=== PATIENT | female | born 1975 | race African-American/Black ===

== ENCOUNTER 2018-08-13 10:50 | Inpatient (IN) | payer OTHER ==
[~2018-08-13 10:50] MED LIST: DESFLURANE 240 ML LIQUID IH ONE; DEXAMETHASONE SOD PHOS 4 MG/ML VIAL ONE; FAMOTIDINE/PF 20 MG/2 ML VIAL ONE; HEPARIN SODIUM 5000 UNIT/1 ML ONE; HYDROmorphone HCL/PF 1 MG/ML DISP.SYRIN ONE; KETOROLAC TROMETHAMINE 30 MG/1ML VIAL ONE; LACTATED RINGERS 1,000 ML IV.SOLN IV ONE; LIDOCAINE HCL/PF 2% 100 MG/5 ML VIAL IJ ONE; Lidocaine 1% PF 30ml 10 MG/ML VIAL ONE; MIDAZOLAM HCL 2 MG/2 ML VIAL ONE; NORMAL SALINE 1,000 ML IV.SOLN IV ONE; ONDANSETRON HCL/PF 4 MG/ 2ML VIAL ONE; PHENYLEPHRINE HCL 10 MG/1 ML ONE; PROPOFOL 200 MG/20 ML VIAL IV ONE; ROCURONIUM BROMIDE 10 MG/ML 5ML VIAL ONE; SUGAMMADEX 200 mg/2mL 200 MG/2 ML VIAL IV ONE; ceFAZolin SODIUM 1 GM VIAL ONE; fentaNYL CITRATE/PF 100 MCG/ 2ML AMP ONE
[2018-08-13] MEDS ORDERED: fentaNYL CITRATE/PF 100 MCG/ 2ML AMP ONE (14:22)
[2018-08-13] MEDS ORDERED: HYDROmorphone HCL/PF 1 MG/ML DISP.SYRIN ONE (14:49)
[2018-08-13] MEDS ORDERED: ONDANSETRON HCL/PF 4 MG/ 2ML VIAL ONE (15:18)
[2018-08-13] MEDS ORDERED: LEVALBUTEROL HCL 1.25 MG/3 ML AMPUL.NEB NEB PRN (15:49)
[2018-08-13] MEDS ORDERED: MORPHINE SULFATE 4 MG/ML PREFILLED SYR IVP PRN (15:49)
[2018-08-13] MEDS ORDERED: PROMETHAZINE HCL 25 MG in 0.9 % SODIUM CHLORIDE 50 ML IV PRN (15:49)
[2018-08-13] MEDS ORDERED: HYDROCODONE/ACETAMINOPHEN 15 ML SOLUTION PO PRN (15:49)
[2018-08-13] MEDS ORDERED: diphenhydrAMINE HCL 50 MG/ML VIAL IVP PRN (15:49)
[2018-08-13] MEDS ORDERED: ACETAMINOPHEN 1,000 MG/100 ML INJ IV PRN (15:49)
--- NOTE | 2018-08-13 15:58 | History and Physical Report ---
History of Present Illnes - History of Present Illness Reason for Visit: Obesity History of Present Illness: Patient underwent gastric sleeve today for morbid obesity. The procedure went well. She will be admitted to Acute Care for Post op care. - Past Medical History [employer]ER: Migraine Gastrointestinal: GERD Heme/Onc: Anemia NOS (Pre op Hgb 13.9) Rheumatologic: Other (Lupus) Renal/: Other (Stress incontinence) Endocrine: Diabetes (Diet controlled A1C 6.0 last month) - Past Surgical History Past Surgical History: Hysterectomy (1997 - endometriosis), Other (bladder sling), Other (R arm fx) - Past Family History Father Family History: Cancer (prostate), (58) - Past Social History Smoke: No Alcohol: None Drugs: None Lives: Other (S.OJulieta Mckinley) - Health Maintenance Health Maintenance: denies: Influenza Vaccine, Pneumococcal Vaccine Influenza Vaccine: No Pneumonia Vaccine: No Resuscitation Status: Resusciation Status Resuscitation Status Full Code Review of Systems - Review of Systems Constitutional: negative: Fever, Weakness Eyes: negative: pain ENT: Throat Pain. negative: Ear Pain Respiratory: negative: Cough, Shortness of Breath Cardiovascular: negative: Chest Pain Gastrointestinal: Abdominal Pain. negative: Nausea, Vomiting Genitourinary: negative: Dysuria Musculoskeletal: negative: Back Pain Skin: negative: Rash Neurological: negative: Weakness - Medications/Allergies Current Inpatient Medications: Current Inpatient Medications Acetaminophen (Ofirmev) 1,000 mg IV Q6H PRN PRN Reason: For Mild Breakthrough Pain Stop: 08/17/18 15:48 Cefazolin Sodium (Ancef) 1 gm IV Q8 KACEY Stop: 08/13/18 21:01 Diphenhydramine HCl (Benadryl) 25 mg IVP Q6H PRN PRN Reason: Sleeping and Itching Stop: 08/17/18 15:48 Famotidine (Pepcid) 20 mg IVP BID KACEY Stop: 08/17/18 20:59 Promethazine HCl 25 mg/ Sodium (Chloride) 51 mls @ 600 mls/hr IV Q6 PRN PRN Reason: Nausea / Vomiting Stop: 08/17/18 15:48 Ketorolac Tromethamine (Toradol) 30 mg IVP Q6 PRN PRN Reason: For Mild Pain Stop: 08/17/18 15:48 Levalbuterol HCl (Xopenex) 1.25 mg NEB Q4 PRN PRN Reason: SOA, Dyspnea, or Wheezing Stop: 08/17/18 15:48 Morphine Sulfate (Depodur) 2 mg IVP Q2 PRN PRN Reason: MODERATE PAIN Stop: 08/17/18 15:48 Morphine Sulfate (Depodur) 4 mg IVP Q2 PRN PRN Reason: Severe Pain Stop: 08/17/18 15:48 Ondansetron HCl (Zofran 4 Mg/2 Ml) 4 mg IVP Q6H PRN PRN Reason: Nausea / Vomiting Stop: 08/17/18 15:48 Exam - Exam General: Alert, Oriented to Person, Oriented to Place, Oriented to Time, Cooperative, No acute distress HEENT: Atraumatic, PERRLA, EOMI, Mouth Mucous membr. moist/Mystic Neck: Normal Range of Motion Lungs: Clear to auscultation, Normal air movement, Speaks full Sentences Cardiovascular: Regular rate Abdomen: Normal bowel sounds, Soft. No: No tenderness (diffuse mild) Integumentary: Normal Extremities: No edema Neurological: Normal gait, Normal speech, Strength Equal Bilat Psych/Mental Status: Mental status NL, Mood NL, Appropriate Affect, Intact Judgment - Laboratory Results Laboratory Results: Laboratory Results 08/13/18 Unknown Urine HCG, Qual Negative Assessment/Plan - Assessment/Plan (1) S/P gastric surgery Status: Acute Current Visit: Yes Plan: Admit to Acute for IVF. IV pain meds for 24 hours then transition to po. IV H2 blockers. Oral PPI's. SCD and heparin for DVT prevention (lovenox allergy). Clear liquid and advance per protocol. (2) Morbid obesity Status: Acute Current Visit: Yes (3) Lupus Status: Chronic Current Visit: No Qualifiers: Lupus erythematosus form: unspecified Qualified Code(s): L93.0 - Discoid lupus erythematosus Plan: PCP recommended being off imuran for 2 weeks pre and post op. 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 No home meds. VTE Assessment - RISK FACTOR SCORE VTE RISK FACTOR SCORES: AGE 40-60 YEARS, MAJOR SURGERY/ANESTHESIA TIME > 1 HOUR - RISK VTE MODERATE RISK: SCORE OF 2 (RISK PROXIMAL DVT 2-4%) PROPHYAXIS NEEDED
[2018-08-13] MEDS: 0.9 % SODIUM CHLORIDE 1,000 ML IV SCH ×2 (16:54→22:00)
[2018-08-13] MEDS: ONDANSETRON HCL/PF 4 MG/ 2ML VIAL IVP PRN (16:56)
[2018-08-13 19:43] VITALS: BMI 38.7
[2018-08-13] MEDS: ceFAZolin SODIUM 1 GM VIAL IV SCH ×2 (20:00→22:00)
[2018-08-13] MEDS: MORPHINE SULFATE 4 MG/ML PREFILLED SYR IVP PRN (21:30)
[2018-08-13] MEDS: FAMOTIDINE/PF 20 MG/2 ML VIAL IVP SCH (22:00)
[2018-08-13] MEDS ORDERED: 0.9 % SODIUM CHLORIDE 50 ML IV ONE (22:25)
[2018-08-14] MEDS: MORPHINE SULFATE 4 MG/ML PREFILLED SYR IVP PRN (06:48)
[2018-08-14] MEDS: ONDANSETRON HCL/PF 4 MG/ 2ML VIAL IVP PRN (07:18)
--- NOTE | 2018-08-14 09:44 | Inpatient Progress Note ---
Subjective - Required Recertification Statement I anticipate X number of days because-include discharge plan: 1 - Review of Systems Subjective: Patient tired, sleeping. No doing IS. Not tolerating more than ice chips. Objective - Exam Vitals and I&O: Vital Signs Temp 101.5 F H 08/14/18 06:00 Pulse 94 H 08/14/18 06:00 Resp 16 08/14/18 06:00 BP 138/80 08/14/18 02:00 Pulse Ox 99 08/14/18 06:00 Intake & Output 08/13/18 08/13/18 08/14/18 11:59 23:59 11:59 Intake Total 2140 300 Output Total 1400 Balance 740 300 Weight 99.159 kg Intake: IV 1800 300 Left Hand 300 Left Wrist 1800 Oral 340 Output: Urine 400 Urine/Stool Mix 1000 Other: Voiding Method Toilet Toilet General: Alert, Oriented to Person, Oriented to Place, Oriented to Time, Cooperative, No acute distress Lungs: Clear to auscultation, Normal air movement, Speaks full Sentences Cardiovascular: Regular rate Abdomen: Normal bowel sounds, Soft. No: No tenderness (Tender diffusely.) - Results Results: Laboratory Results Urine HCG, Qual Negative (NEGATIVE) 08/13/18 Unknown Assessment/Plan - Assessment/Plan (1) S/P gastric surgery Status: Acute Current Visit: Yes Plan: Encourage IS and walking. Stop IV pain meds. No reglan due to allergy. 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
[2018-08-14] MEDS: PANTOPRAZOLE SODIUM 40 MG TABLET PO SCH (12:21)
[2018-08-14] MEDS: 0.9 % SODIUM CHLORIDE 1,000 ML IV SCH ×2 (12:21→15:41)
[2018-08-14] MEDS: FAMOTIDINE/PF 20 MG/2 ML VIAL IVP SCH (12:23)
[2018-08-14] MEDS: HEPARIN SODIUM 5000 UNIT/1 ML SQ SCH (12:23)
[2018-08-14] MEDS: KETOROLAC TROMETHAMINE 30 MG/1ML VIAL IVP PRN (18:50)
[2018-08-14] MEDS ORDERED: MORPHINE SULFATE 2 MG/ML PREFILLED SYR IVP PRN (19:52)
[2018-08-15] MEDS: 0.9 % SODIUM CHLORIDE 1,000 ML IV SCH ×2 (00:17→05:00)
[2018-08-15] MEDS: FAMOTIDINE/PF 20 MG/2 ML VIAL IVP SCH ×2 (00:40→13:12)
[2018-08-15 03:45] VITALS: BP 132/76
[2018-08-15] MEDS: KETOROLAC TROMETHAMINE 30 MG/1ML VIAL IVP PRN (04:07)
--- NOTE | 2018-08-15 08:19 | Discharge Summary ---
Discharge Summary - Discharge Sumary History of Present Illness: Patient underwent gastric sleeve today for morbid obesity. The procedure went well. She will be admitted to Acute Care for Post op care. Condition at Discharge: Stable Home Medications: Ambulatory Orders Medication Instructions Recorded Hydrocodone/Acetaminophen 10 ml PO Q6 #120 ml 08/14/18 [Hydrocodone-Acetamn 7.5-325/15] Promethazine HCl [Phenergan] 12.5 mg PO Q6 PRN #280 ml 08/14/18 Consultations this Visit: None Procedures this Visit: Other (Sleeve Gastrectomy) Allergies/Adverse Reactions: Allergies Allergy/AdvReac Type Severity Reaction Status Date / Time enoxaparin [From Lovenox] Allergy Verified 08/14/18 09:55 metoclopramide [From Reglan] Allergy Verified 08/14/18 09:55 Sulfa (Sulfonamide Allergy Verified 08/14/18 09:55 Antibiotics) Discharge Summary: Patient underwent uncomplicated sleeve gastrectomy. He was transitioned from CLD to FLD without incident. He was also transitioned from IV pain meds to po pain meds. Ambulating, IS, Lovenox, SCD for prevention. She had a post op temp of 101 that resolved with IS and ambulation. She remained off diabetic meds (as she was when she came in) with BS 80-110. She will continue off imuran for 2 weeks post op based on rheumatology recs. Patient was discharged home in good condition to follow-up with surgery and PCP in the next 1-2 weeks. Hospital Course: Discharge Dx. Morbid obesity - s/p sleeve gastrectomy. Lupus. DM. Disposition - home
[2018-08-15] MEDS: PANTOPRAZOLE SODIUM 40 MG TABLET PO SCH (13:11)
[2018-08-15] MEDS: HEPARIN SODIUM 5000 UNIT/1 ML SQ SCH (13:11)
== END 2018-08-15 08:30 | disposition home or self-care (01) | DRG 641 ==
LOC: OPSURG 10:50 → SOUTH 15:34
PROVIDERS: ADMIT Family Medicine; ATTEND Family Medicine
DX: E66.01 Morbid (severe) obesity due to excess calories (principal); Z68.41 Body mass index [BMI] 40.0-44.9, adult; K21.9 Gastro-esophageal reflux disease without esophagitis; L93.0 Discoid lupus erythematosus; E11.9 Type 2 diabetes mellitus without complications; D64.9 Anemia, unspecified
CPT/HCPCS: 81025; 99222; 99231; 99238; J0690; J1100; J1170; J1644; J1885; J2001; J2250; J2270; J2370; J2405; J2550; J2704; J3010; S0028; 43775; J7030; J7120; S1016

== ENCOUNTER 2018-08-13 10:52 | Day surgery (SDC) | payer OTHER ==
[~2018-08-13 10:52] MED LIST changes: +BUPIVACAINE HCL IV ONE; -MIDAZOLAM HCL 2 MG/2 ML VIAL ONE
== END 2018-08-13 15:40 ==
LOC: OUT 10:52
PROVIDERS: ATTEND Surgery
DX: E66.01 Morbid (severe) obesity due to excess calories (principal); Z68.41 Body mass index [BMI] 40.0-44.9, adult; K21.9 Gastro-esophageal reflux disease without esophagitis
CPT/HCPCS: 43235; 43775; J0690; J1100; J1170; J1644; J1885; J2001; J2370; J2405; J2704; J3010; J3490; J7030; J7120; S0028